=== PATIENT | male | born 1980 | race Caucasian/White ===

== ENCOUNTER 2018-11-23 13:47 | Emergency (ER) | payer OTHER ==
[~2018-11-23] VITALS: Ht 172.7 cm; Wt 89.1 kg
[2018-11-23 14:02] VITALS: BP 169/114; PULSE 115; RESP 18; Ht 172.7 cm; Wt 89.1 kg
[2018-11-23] MEDS ORDERED: ACETAMINOPHEN 325 MG TAB PO STA (22:06)
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
[2018-11-23] MEDS ORDERED: HYDR25SU23 PR (22:30)
[2018-11-23] MEDS ORDERED: POLY17PO6 PO (22:31)
== END 2018-11-23 23:23 | disposition home or self-care (01) ==
LOC: E/R 13:47
DX: K64.8 Other hemorrhoids (principal); F17.210 Nicotine dependence, cigarettes, uncomplicated
CPT/HCPCS: 74176; Z7502; Z7610

== ENCOUNTER 2018-11-28 14:23 | Emergency (ER) | payer SELFPAY ==
[~2018-11-28 14:23] MED LIST: HYDR25SU23 PR; POLY17PO6 PO
== END 2018-11-28 14:45 | disposition left against medical advice (07) ==
LOC: FTE 14:23
DX: Z53.21 Procedure and treatment not carried out due to patient leaving prior to being seen by health care provider (principal)

== ENCOUNTER 2019-02-20 01:51 | Emergency (ER) | payer OTHER ==
[~2019-02-20] VITALS: Ht 180.3 cm; Wt 89.1 kg
[2019-02-20 01:52] VITALS: Ht 180.3 cm; Wt 89.1 kg
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
[2019-02-20 03:03] VITALS: BP 147/98; PULSE 74; RESP 17
[2019-02-20] MEDS ORDERED: POLY17PO6 PO (03:04)
[2019-02-20] MEDS ORDERED: HYDR25SU23 PR (03:04)
== END 2019-02-20 03:08 | disposition home or self-care (01) ==
LOC: E/R 01:51
DX: K64.4 Residual hemorrhoidal skin tags (principal); F17.210 Nicotine dependence, cigarettes, uncomplicated
CPT/HCPCS: 80053; 85025; Z7502; 99284

== ENCOUNTER 2019-03-04 00:16 | Emergency (ER) | payer OTHER ==
[~2019-03-04] VITALS: Ht 165.1 cm; Wt 89.0 kg
[2019-03-04 00:22] VITALS: Ht 165.1 cm; Wt 89.0 kg
[2019-03-04 00:24] VITALS: BP 138/85; PULSE 121; RESP 19
[2019-03-04] MEDS ORDERED: DIPHTH/TET/ACEL PERTUSS (ADULT) 0.5 ML VIAL IM* ONE (00:30)
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
== END 2019-03-04 07:41 | disposition home or self-care (01) ==
LOC: E/R 00:16
DX: F10.188 Alcohol abuse with other alcohol-induced disorder (principal); S01.511A Laceration without foreign body of lip, initial encounter; R00.0 Tachycardia, unspecified; S79.911A Unspecified injury of right hip, initial encounter; S09.90XA Unspecified injury of head, initial encounter; T75.4XXA Electrocution, initial encounter; F17.210 Nicotine dependence, cigarettes, uncomplicated; Y08.89XA Assault by other specified means, initial encounter; Z23 Encounter for immunization; Z59.0 Homelessness
CPT/HCPCS: 90471